=== PATIENT | male | born 2000 | race Hispanic/Latino ===

== ENCOUNTER 2022-10-29 11:45 | Emergency (ER) | payer OTHER ==
[~2022-10-29] VITALS: Ht 177.8 cm; Wt 86.2 kg
[2022-10-29 12:13] VITALS: BP 137/92
[2022-10-29] MEDS ORDERED: LIDOCAINE HCL 1% 10 ML VIAL ONE (12:27)
[2022-10-29] MEDS ORDERED: CEPH500B PO (12:39)
== END 2022-10-29 13:21 | disposition home or self-care (01) ==
LOC: EDH 11:45
DX: L02.01 Cutaneous abscess of face (principal)
CPT/HCPCS: 99283; 10060; 87070; 87076; 87077; 87186; J3490